=== PATIENT | male | born 1965 | race African-American/Black ===

== ENCOUNTER 2019-09-26 11:14 | Emergency (ER) | payer OTHER ==
--- NOTE | 2019-09-26 11:25 | PCM.HP.2 ---
H&P History of Present Illness - Related Data Allergies/Adverse Reactions: Allergies Allergy/AdvReac Type Severity Reaction Status Date / Time No Known Allergies Allergy Verified 09/26/19 11:24 Home Medications: Home Meds . [No Known Home Meds] 09/26/19 [History] Orders Last 24hrs: Active Orders 24 hr Category Date Time Status Head wo Cont [CT] Routine Exams 09/26/19 Ordered
[2019-09-26] MEDS ORDERED: Sodium Chloride 0.9% 1,000 ML IV SCH (11:30)
--- NOTE | 2019-09-26 11:36 | EDM.PDOC ---
ED HPI GENERAL MEDICAL PROBLEM - General Chief Complaint: Neuro Symptoms/Deficits Stated Complaint: [facility] Time Seen by Provider: 09/26/19 11:25 Source of Information: Reports: Patient, EMS History Limitations: Reports: No Limitations - History of Present Illness INITIAL COMMENTS - FREE TEXT/NARRATIVE: 54-year-old male presents to the ED per [facility].. Patient states that she was standing at the counter in the kitchen making breakfast cutting up onions when he developed sudden onset of severe pain in the right side of his temporal scalp and eye area as if he did got indirectly into his eye. After this he developed severe right hemicranial headache cramping pain and he recognized that he was starting to become very weak in his right side. He staggered to the couch where he sat down. He recognized them that he developed complete hemiparesis of the right side unable to lift his right hand or get up from the seated position due to paresis. It took a while for his speech to come back so that he could actually contact his relative who is staying with him. She in turn called 911. His symptoms started about 10:00 as far as we can ascertain. In about 20 minutes or so his symptoms completely resolved his speech is normal and neuro exam is completely normal in the ED. He was sent immediately for CT of the head which is within normal limits showing no intracranial bleeding or mass effect. He has had no previous TIAs. States he'll check up in the clinic 3 months ago and was not identified to be hypertensive. Blood pressure here is elevated at 170-102. Eyes that his cholesterol was too high at the time of his last exam. He's been having a left-sided headache at the base of his neck for the last 4 days. Blood sugar in the ED was 84. Onset: Today Onset Date: 09/26/19 Onset Time: 10:00 Duration: Minutes: Location: Reports: Upper Extremity, Right (Paresis), Lower Extremity, Right, Other ( paresisand aphasia with inability to speak for about 20 minutes ) Quality: Reports: Throbbing (Severe throbbing aching cramping type headache in the right side of his head that occurred first.) Severity: Severe (With spontaneous improvement before coming to the ED.) Improves with: Reports: Other Worsens with: Reports: None (All symptoms have completely resolved prior to coming to the ED) Context: Reports: Other. Denies: Activity, Exercise, Lifting, Sick Contact, Trauma Associated Symptoms: Reports: Headaches, Weakness (Eval complete right sided hemiparesis which resolved prior to coming to the ED). 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 09/26/19 [Rx] Clopidogrel Bisulfate [Plavix] 75 mg PO DAILY #14 tablet 09/26/19 [Rx] Social & Family History - Living Situation & Occupation Living situation: Reports: Single Occupation: Employed ED ROS GENERAL - Review of Systems Review Of Systems: See Below Constitutional: Denies: Fever, Chills, Malaise, Weakness, Fatigue, Decreased Appetite, Weight Loss HEENT: Reports: No Symptoms Respiratory: Reports: No Symptoms Cardiovascular: Reports: No Symptoms, Other Endocrine: Reports: No Symptoms GI/Abdominal: Reports: No Symptoms : Reports: No Symptoms (Told that his cholesterol was mildly elevated at last exam 3 months ago) Musculoskeletal: Reports: No Symptoms Skin: Reports: No Symptoms Neurological: Reports: Headache, Other (Complete resolution of neurological symptoms that precipitated ED visit today.) Psychiatric: Reports: No Symptoms Hematologic/Lymphatic: Reports: No Symptoms ED EXAM, NEURO - Physical Exam Exam: See Below Exam Limited By: No Limitations General Appearance: Alert, WD/WN, Anxious (Mildly anxious) Eye Exam: Bilateral Eye: Normal Fundi, Normal Inspection, PERRL Throat/Mouth: Normal Inspection (Uvula is midline.), Normal Lips, Normal Oropharynx, Other Head Exam: Atraumatic (Formation is normal), Normocephalic Neck: Normal Inspection, Supple, Tender Lateral Respiratory/Chest: No Respiratory Distress (Tender left base of skull in the distribution of the trapezius muscle insertion.), Lungs Clear, Normal Breath Sounds, No Accessory Muscle Use, Chest Non-Tender Cardiovascular: Normal Peripheral Pulses, No Edema, No Gallop, No Murmur, No Rub , Bradycardia (50/m) GI/Abdominal: Normal Bowel Sounds, Soft, Non-Tender, No Organomegaly, Pelvis Stable Neurological: Alert, Normal Mood/Affect, Normal Dorsiflexion, CN II-XII Intact, Normal Gait, No Motor/Sensory Deficits, Oriented x 3, Other (No pronator drift.) . No: Abnormal Finger to Nose, Babinski DTR: 1+: Achilles (R), Achilles (L), 2+: Bicep (R), Bicep (L), Patella (R), Patella (L) Back Exam: Normal Inspection, Full Range of Motion. No: CVA Tenderness (L), CVA Tenderness (R) Extremities: Normal Inspection, Normal Range of Motion, Non-Tender, No Pedal Edema Psychiatric: Normal Mood, Anxious Skin Exam: Warm, Dry, Intact, Normal Color EKG INTERPRETATION EKG Date: 09/26/19 Time: 11:35 Rhythm: Other Rate (Beats/Min): 50 [place]: Normal P-Wave: Present QRS: Other (There is a RSR prime wave in V1 and V2. There is evidence of early R -wave transition and evidence of septal hypertrophy pattern and likely left ventricular hypertrophy pattern due to tall R waves in lead 1.) ST-T: Elevated (ST segment elevation in V2 with diffuse repolarization pattern) QT: Normal EKG Interpretation Comments: Abnormal ECG Course - Vital Signs Last Recorded V/S: Last Vital Signs Temp 36.1 C 09/26/19 11:27 Pulse 65 09/26/19 13:12 Resp 18 09/26/19 13:08 BP 146/83 H 09/26/19 13:28 Pulse Ox 96 09/26/19 12:47 - Orders/Labs/Meds Orders: Active Orders 24 hr Category Date Time Status EKG Documentation Completion [RC] STAT Care 09/26/19 11:31 Active Ang Head [CT] Stat Exams 09/26/19 11:34 Taken Ang Neck [CT] Stat Exams 09/26/19 11:35 Taken Chest 1V Frontal [CR] Stat Exams 09/26/19 11:31 Taken Head wo Cont [CT] Routine Exams 09/26/19 Taken Labs: Laboratory Tests 09/26/19 09/26/19 09/26/19 Range/Units 11:22 11:22 11:22 WBC 5.06 (4.23-9.07) K/mm3 RBC 5.07 (4.63-6.08) M/mm3 Hgb 15.5 (13.7-17.5) gm/dl Hct 44.9 (40.1-51.0) % MCV 88.6 (79.0-92.2) fl MCH 30.6 (25.7-32.2) pg MCHC 34.5 (32.2-35.5) g/dl RDW Std Deviation 43.6 (35.1-43.9) fL Plt Count 234 (163-337) K/mm3 MPV 11.2 (9.4-12.3) fl Neut % (Auto) 55.7 (34.0-67.9) % Lymph % (Auto) 29.4 (21.8-53.1) % Ceiba % (Auto) 12.3 H (5.3-12.2) % Eos % (Auto) 2.0 (0.8-7.0) Baso % (Auto) 0.4 (0.1-1.2) % Neut # (Auto) 2.82 (1.78-5.38) K/mm3 Lymph # (Auto) 1.49 (1.32-3.57) K/mm3 Ceiba # (Auto) 0.62 (0.30-0.82) K/mm3 Eos # (Auto) 0.10 (0.04-0.54) K/mm3 Baso # (Auto) 0.02 (0.01-0.08) K/mm3 PT 10.2 (9.7-12.0) SECONDS INR 0.93 APTT 28 (22-31) SECONDS D-Dimer, Quantitative (0.19-0.50) mg/L Sodium 139 (136-145) mEq/L Potassium 3.7 (3.5-5.1) mEq/L Chloride 104 (98-107) mEq/L Carbon Dioxide 27 (21-32) mEq/L Anion Gap 11.7 (5-15) BUN 13 (7-18) mg/dL Creatinine 1.0 (0.7-1.3) mg/dL Est Cr Clr Drug Dosing 82.65 mL/min Estimated GFR (MDRD) > 60 (>60) mL/min BUN/Creatinine Ratio 13.0 L (14-18) Glucose 97 (74-106) mg/dL POC Glucose (70-105) mg/dL Calcium 9.3 (8.5-10.1) mg/dL Magnesium 1.9 (1.8-2.4) mg/dl Total Bilirubin 0.6 (0.2-1.0) mg/dL AST 23 (15-37) U/L ALT 28 (16-63) U/L Alkaline Phosphatase 68 (46-116) U/L C-Reactive Protein < 0.2 (<1.0) mg/dL Total Protein 7.5 (6.4-8.2) g/dl Albumin 3.7 (3.4-5.0) g/dl Globulin 3.8 gm/dL Albumin/Globulin Ratio 1.0 (1-2) Cholesterol 235 H (<200) mg/dL LDL Cholesterol Direct 156 H* (<100) mg/dL HDL Cholesterol 48.0 (40-59) mg/dL 09/26/19 09/26/19 Range/Units 11:22 11:28 WBC (4.23-9.07) K/mm3 RBC (4.63-6.08) M/mm3 Hgb (13.7-17.5) gm/dl Hct (40.1-51.0) % MCV (79.0-92.2) fl MCH (25.7-32.2) pg MCHC (32.2-35.5) g/dl RDW Std Deviation (35.1-43.9) fL Plt Count (163-337) K/mm3 MPV (9.4-12.3) fl Neut % (Auto) (34.0-67.9) % Lymph % (Auto) (21.8-53.1) % Ceiba % (Auto) (5.3-12.2) % Eos % (Auto) (0.8-7.0) Baso % (Auto) (0.1-1.2) % Neut # (Auto) (1.78-5.38) K/mm3 Lymph # (Auto) (1.32-3.57) K/mm3 [place] # (Auto) (0.30-0.82) K/mm3 Eos # (Auto) (0.04-0.54) K/mm3 Baso # (Auto) (0.01-0.08) K/mm3 PT (9.7-12.0) SECONDS INR APTT (22-31) SECONDS D-Dimer, Quantitative 0.20 (0.19-0.50) mg/L Sodium (136-145) mEq/L Potassium (3.5-5.1) mEq/L Chloride (98-107) mEq/L Carbon Dioxide (21-32) mEq/L Anion Gap (5-15) BUN (7-18) mg/dL Creatinine (0.7-1.3) mg/dL Est Cr Clr Drug Dosing mL/min Estimated GFR (MDRD) (>60) mL/min BUN/Creatinine Ratio (14-18) Glucose (74-106) mg/dL POC Glucose 84 (70-105) mg/dL Calcium (8.5-10.1) mg/dL Magnesium (1.8-2.4) mg/dl Total Bilirubin (0.2-1.0) mg/dL AST (15-37) U/L ALT (16-63) U/L Alkaline Phosphatase (46-116) U/L C-Reactive Protein (<1.0) mg/dL Total Protein (6.4-8.2) g/dl Albumin (3.4-5.0) g/dl Globulin gm/dL Albumin/Globulin Ratio (1-2) Cholesterol (<200) mg/dL LDL Cholesterol Direct (<100) mg/dL HDL Cholesterol (40-59) mg/dL Meds: Medications Discontinued Medications Generic Name Dose Route Start Last Admin Trade Name Freq PRN Reason Stop Dose Admin Aspirin 325 mg 09/26/19 13:45 09/26/19 14:07 Ecotrin PO 09/26/19 13:46 325 mg ONETIME ONE Administration Clopidogrel Bisulfate 75 mg 09/26/19 13:46 09/26/19 14:07 Plavix PO 09/26/19 13:47 75 mg ONETIME ONE Administration Sodium Chloride 1,000 mls @ 100 mls/hr 09/26/19 11:30 Normal Saline IV ASDIRECTED LAURA Nicardipine HCl 25 mg/ Sodium 260 mls @ 26 mls/hr 09/26/19 11:45 09/26/19 12: 16 Chloride IV 2.5 mg/hr TITRATE LAURA 26 mls/hr Administration 2.5 MG/HR Sodium Chloride 100 mls @ 75 mls/hr 09/26/19 12:00 09/26/19 12:03 Normal Saline IV 75 mls/hr ASDIRECTED LAURA Administration Iopamidol 100 ml 09/26/19 11:47 09/26/19 12:03 Isovue-370 (76%) IVPUSH 09/26/19 11:48 100 ml ONETIME ONE Administration Sodium Chloride 10 ml 09/26/19 11:47 09/26/19 12:03 Saline Flush FLUSH 10 ml ONETIME PRN Administration IV FLUSH - Radiology Interpretation Free Text/Narrative:: 54-year-old male of descent presents to the ED with acute onset reportedly of inability to speak and right sided hemiparesis. Symptoms occur while he was standing at the counter at home preparing breakfast. Arrived the development of pain in his right eye and then pain cramping and terrible in the right side of his head prior to symptom onset. He then appreciated right-sided weakness and made his way to the couch to sit down. He tried to call out to his friend who was staying with him but was unable to get out of the right words i.e. expressive aphasia. His speech was garbled and mumbling. She did come to his attention and he tried to get up from the couch and was any unable to do so due to the paresis of the right side. Entire complex started about 10:00 as far as we can ascertain. She called the ambulance and alcohol was around 1025. When they arrived they found that he had returned to normal in terms that complete resolution of neurological symptoms his speech was normal as it was in the ED and there is no signs of any focal neurological deficit or weakness. Was done as part of immediate stroke protocol shows no mass effect or intracranial bleeding. His blood pressure is elevated at 174/102. He is not known to be hypertensive but his ECG is certainly suggestive of chronic hypertension changes with left ventricular hypertrophy and possible septal hypertrophy pattern. Plan I'm going to start him on a Cardizem drip 2.5 mg per hour at this time. His rhythm is sinus bradycardia with no ectopy. I will take a better listen to his heart in a quiet room to make sure I do not hear any murmurs to suggest an ASD or VSD which P essentially cause of his symptom complex. He will have CT angiographic of his head and neck performed. - Re-Assessments/Exams Free Text/Narrative Re-Assessment/Exam: 09/26/19 12:29 blood pressures down to 159/97. The neck cut a finger appears just started shortly. 09/26/19 12:50 White count is normal at 5.06. Auto differential reveals 55.7% neutrophils. Hemoglobin is 15.5 with hematocrit of 44.9. Platelet count 34,000. PT is 10.2 with an INR 0.93 PTT is 28 with a d-dimer of 0.0. Sodium 139 with potassium of 3.7. Chloride 104 the back of 27. Anion gap is 11.7. BUN is 13. Glucose is 97 bedside glucose was 84. Calcium is 9.3 magnesium is 1.9. Liver function is normal C-reactive protein is less than 0.2. Total protein 7.5 with an albumin fraction of 3.7 cholesterol is elevated at 235 with an LDL of 156 HDL is 48 ratio 4.9. 09/26/19 13:08 T angiogram of the neck has been completed. Right common carotid artery is unremarkable with no stenosis or dissection or occlusion. Right internal carotid artery is unremarkable in the extracranial segment. No stenosis or dissection is appreciated. The right external carotid artery is unremarkable with no occlusion or stenosis of the origin right vertebral artery unremarkable with no stenosis dissection or occlusion. Left common carotid artery is unremarkable with no stenosis dissection or occlusion. Similarly left internal carotid artery is unremarkable with no stenosis dissection or occlusion. The left external carotid artery is unremarkable with no occlusion or stenosis at the origin. Left vertebral artery unremarkable with no stenosis dissection or occlusion essentially a normal study. CT angiogram of the head was unremarkable in the right internal carotid artery intracranial segment is pain with no significant stenosis or aneurysm. The right anterior cerebral artery is unremarkable with no occlusion or significant stenosis or aneurysm. Right middle cerebral artery is unremarkable with no occlusion or stenosis or aneurysm the right posterior cerebral arteries unremarkable with no occlusion or significant stenosis no aneurysm. Right vertebral arteries unremarkable with no occlusion or significant stenosis or aneurysm. The left internal carotid arteries unremarkable intracranial segment is patent with no significant stenosis or aneurysm. The left anterior cerebral arteries unremarkable with no occlusion or significant stenosis or aneurysm. Left middle cerebral artery also was unremarkable with no occlusion or stenosis or aneurysm. Left posterior cerebral artery appears unremarkable with no occlusion or significant stenosis or aneurysm. Left vertebral artery unremarkable with no aneurysm or occlusion essentially a normal study. Solar arteries unremarkable with no occlusion or significant stenosis or aneurysm. In the brain appears to be a subtle asymmetric low attenuation within the anterior- inferior left temporal lobe likely accentuated due to slight head tilt asymmetry within the scanner and skull base beam hardening artifacts. This was not seen on the conventional head CT technique examination performed roughly 30 minutes prior. Nonetheless developing acute ischemia cannot be entirely excluded. Recommend brain MRI with diffusion-weighted imaging for complete evaluation 09/26/19 13:29 On repeat cardiac examination in a quiet room he doesn't fact have a very quiet heart murmur best heard at the left lower sternal border and is a early systolic ejection murmur most likely coming from the aortic valve. 09/26/19 13:47 I did speak with neurologist restaurant operations manager at [facility] in [place].His name is Dr Flores--he agrees the patient needs MRI and echocardiogram. He agrees to starting on 325mg milligram aspirin daily and Plavix 75mg once daily until these 2 tests have been completed. We'll provide the patient with 14 days of Plavix. I will have him book for an echocardiogram and a MRI as an outpatient probably next week and the results will be sent to [facility] his primary care physician. The concern I have is his heart murmur and whether or not he could've thrown an embolus from his heart to have caused his transient right-sided hemiparesis and a fascia. He does not suffer from migraine headaches. His pressure came down to 117/62 and the Nicardapine drip was discontinued. Departure - Departure Time of Disposition: 13:49 Disposition: Home, Self-Care 01 Condition: Fair Clinical Impression: TIA due to embolism - Discharge Information *PRESCRIPTION DRUG MONITORING PROGRAM REVIEWED*: Not Applicable *COPY OF PRESCRIPTION DRUG MONITORING REPORT IN PATIENT JAMESON: Not Applicable Prescriptions: Aspirin [Aspirin EC] 325 mg PO DAILY #30 tablet. Clopidogrel Bisulfate [Plavix] 75 mg PO DAILY #14 tablet Instructions: Transient Ischemic Attack Referrals: PCP,None [Primary Care Provider] - Forms: ED Department Discharge Additional Instructions: Evaluation the emergency room today in regards to acute onset of strokelike symptoms with complete paralysis of the right upper extremity and right lower extremity with inability to get off the couch and palms voicing your concerns which we call expressive aphasia. By history this means you had transient occlusion of the left middle cerebral artery causing current symptom complex. She of the brain performed initially did not reveal any broken blood vessels or bleeding in the brain or mass effect or tumor. So therefore angiogram which means dye placed within the blood vessels of the head and neck was carried out. It proved to be completely normal showing no signs of obstruction occlusion or narrowing of any of the blood vessels that could cause such a problem. Have a very quiet heart murmur graded less than 1 out of 6. This is most likely due to a valve not opening all the way but it needs to be proven that you do not have any congenital heart defect that you were born with. Therefore you require outpatient investigations by way of MRI of your brain with contrast: MRA and an echocardiogram of her heart which is an ultrasound of the heart to look at the structures and look for any leaky valves or holes in your heart that could've caused her current symptom complex. The goal of course is striving prevent any similar type of occurrence. Medication is to be a full aspirin 325 mg enteric- coated daily with medication Plavix 75 mg once daily until these investigations are completed to make sure that we do not have any other problems that need to be further investigated. After this it is probably prudent to stay on a baby aspirin 81 mg daily for the rest of your life a few can tolerate it. The results of the above tests will be booked as an outpatient and I will have x- ray department call you to arrange these tests early next week when the x-ray department is open the results will be sent to your primary care provider Rosalina Ruiz. Of course return to the ED are immediately if you have any similar symptoms like he had today. - My Orders Last 24 Hours: My Active Orders 09/26/19 Head wo Cont [CT] Routine 09/26/19 11:31 EKG Documentation Completion [RC] STAT Chest 1V Frontal [CR] Stat 09/26/19 11:34 Ang Head [CT] Stat 09/26/19 11:35 Ang Neck [CT] Stat - Assessment/Plan Last 24 Hours: My Active Orders 09/26/19 Head wo Cont [CT] Routine 09/26/19 11:31 EKG Documentation Completion [RC] STAT Chest 1V Frontal [CR] Stat 09/26/19 11:34 Ang Head [CT] Stat 09/26/19 11:35 Ang Neck [CT] Stat
[2019-09-26] MEDS ORDERED: niCARdipine HCl 25 MG in Sodium Chloride 0.9% 250 ML IV SCH (11:45)
[2019-09-26] MEDS ORDERED: Sodium Chloride 0.9% 10 ML Syringe FLUSH PRN (11:47)
[2019-09-26] MEDS ORDERED: Iopamidol 755 Mg/ML 100 ML Bottle IVPUSH ONE (11:47)
[2019-09-26] MEDS ORDERED: Sodium Chloride 0.9% 100 ML IV SCH (12:00)
[2019-09-26] MEDS ORDERED: Aspirin 325 MG Tab.EC PO ONE (13:45)
[2019-09-26] MEDS ORDERED: Clopidogrel 75 MG Tab PO ONE (13:46)
--- NOTE | 2019-09-28 09:12 | CT ---
Head CT Technique: Multiple axial sections through the brain were obtained. Intravenous contrast was not utilized. Comparison: No prior intracranial imaging is available. Findings: Ventricles along with basal cisterns and sulci over the convexities appear within normal limits for the patient's age. No abnormal parenchymal densities are seen. No evidence of intracranial hemorrhage. No midline shift or mass effect is seen. Bone window settings were reviewed which show no acute calvarial abnormality. Visualized mastoid sinuses and visualized paranasal sinuses are clear. Mild atherosclerotic calcification is seen within the carotid siphon. Impression: 1. Findings as noted above. 2. Nothing acute is appreciated on noncontrast head CT exam. Diagnostic code #2 This report was dictated in [place] Standard Time I agree with preliminary report issued by [facility] ([facility] report finalized on 09/26/19, 12:36 PM Central Time)
--- NOTE | 2019-09-30 09:39 | CT ---
CT angiogram of neck Technique: Multiple axial sections through the neck were obtained. Intravenous contrast was utilized during the arterial phase. Multiple MIP images were obtained. Findings: Vertebral arteries are patent without focal stenosis. Common carotid arteries are patent without focal stenosis. Carotid bifurcation appears within normal limits. Internal cerebral arteries appear patent. Impression: 1. No focal stenosis or dissection is seen within the carotid or vertebral arteries. Diagnostic code #1 I agree with preliminary report issued by [facility] ([facility] report finalized on 09/26/19, 2:03 PM Central Time) This report was dictated in [place] Standard Time
--- NOTE | 2019-09-30 09:39 | CT ---
CT angiogram of brain Technique: Multiple axial sections through the brain were obtained. Intravenous contrast was utilized during the arterial phase. Multiple MIP images were obtained. Findings: Basilar artery and posterior cerebral arteries are patent without focal stenosis. Carotid siphon that is seen appears patent. Vessels are patent into the anterior cerebral arteries. Middle cerebral arteries appeared to be patent. No discrete aneurysm is appreciated. Impression: 1. No definite stenosis is seen on CT angiogram of the brain. Diagnostic code #1 I agree with preliminary report issued by [facility] ([facility] report finalized on 09/26/19, 2:02 PM Central Time) This report was dictated in [place] Standard Time
--- NOTE | 2019-09-30 09:40 | CR ---
Chest: Portable view of the chest was obtained. Comparison: No prior chest x-ray. Heart size and mediastinum are within normal limits for portable technique. Lungs are clear. Bony structures are grossly intact. Impression: 1. Nothing acute is appreciated on portable chest x-ray. Diagnostic code #1 This report was dictated in [place] Standard Time
== END 2019-09-26 14:02 | disposition home or self-care (01) ==
LOC: JD.ED 11:14
DX: G45.9 Transient cerebral ischemic attack, unspecified (principal); I74.9 Embolism and thrombosis of unspecified artery; Z79.82 Long term (current) use of aspirin
CPT/HCPCS: 36415; 70450; 70496; 70498; 71045; 80053; 82465; 82962; 83718; 83721; 83735; 85025; 85379; 85610; 85730; 86140; 93005; 96365; 96366; 99285; A9270; J7030; J7050; Q9967; 93010